=== PATIENT | female | born 2000 | race Asian ===

== ENCOUNTER 2021-06-14 16:30 | Emergency (ER) | payer OTHER ==
[~2021-06-14] VITALS: Ht 165.1 cm; Wt 66.8 kg
[2021-06-14 18:00] VITALS: BP 145/87
== END 2021-06-14 18:26 | disposition home or self-care (01) ==
LOC: EMS 16:33
DX: F43.9 Reaction to severe stress, unspecified (principal)
CPT/HCPCS: 99281; Z7502